=== PATIENT | female | born 1990 | race Hispanic/Latino ===

== ENCOUNTER 2018-12-19 07:47 | Day surgery (SDC) | payer MEDICAID ==
[2018-12-18 17:02] LABS: BASOPHILS % (AUTO) 0.8 % (0.0-5.0); EOSINOPHILS % (AUTO) 3.6 % (0.0-8.0); HEMATOCRIT 41.8 % (36-48); LYMPHOCYTES % (AUTO) 34.6 % (21.0-51.0); MEAN CORPUSCULAR HEMOGLOBIN 30.4 pg (27.0-33.0); MEAN CORPUSCULAR VOLUME 89.4 fL (79-99); MONOCYTES % (AUTO) 4.9 % (3.0-13.0); NEUTROPHILS % (AUTO) 56.1 % (40.0-77.0); PLATELET COUNT (AUTO) 240 K/uL (130-400); RED BLOOD CELL COUNT(AUTO) 4.68 MIL/uL (4.00-5.50); RED CELL DISTRIBUTION WIDTH 13.1 % (11.0-15.5); WHITE BLOOD COUNT (AUTO) 4.4 K/uL (4.8-10.8)
[2018-12-18 17:03] VITALS: BP 125/61
[~2018-12-19] VITALS: Ht 162.6 cm; Wt 59.4 kg
[2018-12-19] VITALS (15 sets, daily range): BP systolic 100–115; BP diastolic 53–71
[~2018-12-19 07:47] MED LIST: CALDOLOR 800MG+NS 250ML 250 ML IV SCH; IBUP-2353 PO; LACTATED RINGERS 1000ML 1,000 ML IV SCH
[2018-12-19] MEDS ORDERED: STRONG IODINE SOLUTION 30ML BOTTLE ONE (08:41)
[2018-12-19] MEDS ORDERED: BUPIVACAINE/PF 0.25% 30ML VIAL IJ ONE (08:41)
[2018-12-19] MEDS ORDERED: LIDOCAINE PF 2% 5ML ABBOJECT ONE (08:57)
[2018-12-19] MEDS ORDERED: PROPOFOL 10 MG/ML 20ML VIAL IV ONE ×2 (08:58→09:57)
[2018-12-19] MEDS ORDERED: FENTANYL CITRATE PF 50 MCG/1 ML 2ML VIAL ONE (08:58)
[2018-12-19] MEDS ORDERED: MIDAZOLAM HCL 1 MG/ML 2ML VIAL ONE (08:58)
[2018-12-19] MEDS ORDERED: ROCURONIUM 10MG/1ML SYR 10 MG/ML ML ONE (08:58)
[2018-12-19] MEDS ORDERED: NEOSTIGMINE 5MG/5ML SYR IV ONE (09:54)
[2018-12-19] MEDS ORDERED: GLYCOPYRROLATE 1 MG/5 ML SYRINGE ONE (09:54)
--- NOTE | 2018-12-19 10:20 | NUR ---
OB PAD SOAKED, CHANGED BY ADRIANA LIANG AND ADRIANA COOK. Addendum: 12/19/18 at 1112 by SP OQUENDO RN RN Amended: Links added.
[2018-12-19] MEDS ORDERED: MEPERIDINE-PF 25 MG/ML SYG ONE ×2 (10:25→10:54)
[2018-12-19] MEDS ORDERED: CITRIC ACID/SODIUM CITRATE 30 ML UDCUP ONE (10:28)
[2018-12-19] MEDS ORDERED: FAMOTIDINE/PF 20 MG/2 ML VIAL IV ONE (10:28)
--- NOTE | 2018-12-19 11:12 | NUR ---
OB PAD CHANGED BY ADRIANA LIANG AND ADRIANA TERRELL. Addendum: 12/19/18 at 1113 by SP OQUENDO RN RN Amended: Links added.
--- NOTE | 2018-12-19 12:15 | NUR ---
PT DISCHARGED HOME, TOLERATING FLUIDS, DENIES ANY SEVERE PAIN, NAUSEA OR DIZZINESS, AMBULATING WELL, VOIDED GOOD AMOUNT PRIOR TO DISCHARGE. MODERATE AMOUNT OF BLEEDING NOTED. PT REMINDED TO WATCH FOR SIGNS OF EXCESSIVE BLEEDING OR INFECTION AND TO NOTIFY DR. BARRAZA IF EXPERIENCES EITHER. PT AND SPOUSE REPORT NO FURTHER QUESTIONS AT THIS TIME. PRESCRIPTIONS GIVEN TO SPOUSE.
== END 2018-12-19 12:15 | disposition home or self-care (01) ==
LOC: DAH 07:47
DX: Z30.2 Encounter for sterilization (principal); N87.0 Mild cervical dysplasia; J45.909 Unspecified asthma, uncomplicated; Z87.891 Personal history of nicotine dependence; K21.9 Gastro-esophageal reflux disease without esophagitis
CPT/HCPCS: 36415; 57510; 58670; 84703; 85025; 86850; 86900; 86901; A4215; A4351; C1769 ×2; J1741; J2001; J2175 ×2; J2250; J2704 ×2; J2710; J3010; J3490 ×3; J7120

== ENCOUNTER 2022-05-23 07:50 | Emergency (ER) | payer MEDICAID, OTHER ==
[~2022-05-23] VITALS: Ht 162.6 cm; Wt 80.7 kg
[~2022-05-23 07:50] MED LIST changes: -CALDOLOR 800MG+NS 250ML 250 ML IV SCH; -IBUP-2353 PO; +IBUP-2784 PO; -LACTATED RINGERS 1000ML 1,000 ML IV SCH
[2022-05-23] MEDS ORDERED: ACETAMINOPHEN 500 MG TABLET PO STA (08:17)
[2022-05-23] MEDS ORDERED: OSEL75 PO (09:26)
[2022-05-23] MEDS ORDERED: DEXAMETHASONE SOD PHOSPHATE 4 MG/ML 1ML VIAL IM STA (09:30)
[2022-05-23 09:37] VITALS: BP 121/76
== END 2022-05-23 09:58 | disposition home or self-care (01) ==
LOC: EDH 07:50
DX: J10.1 Influenza due to other identified influenza virus with other respiratory manifestations (principal); Z20.822 Contact with and (suspected) exposure to COVID-19; J45.909 Unspecified asthma, uncomplicated; Z98.890 Other specified postprocedural states
CPT/HCPCS: 99283; 87635; 87880; 87804 ×2; 81025; 96372; J1100; C9803

== ENCOUNTER 2022-08-11 11:34 | Day surgery (SDC) | payer OTHER, SELFPAY ==
[2022-08-10 10:17] LABS: BASOPHILS % (AUTO) 0.5 % (0.0-5.0); EOSINOPHILS % (AUTO) 2.2 % (0.0-8.0); LYMPHOCYTES % (AUTO) 45.5 % (21.0-51.0); MEAN CORPUSCULAR HEMOGLOBIN 29.4 pg (27.0-33.0); MEAN CORPUSCULAR HGB CONC 32.5 g/dL (32.0-36.0); MEAN CORPUSCULAR VOLUME 90.5 fL (79-99); MONOCYTES % (AUTO) 5.2 % (3.0-13.0); NEUTROPHILS % (AUTO) 46.4 % (40.0-77.0); PLATELET COUNT (AUTO) 257 K/uL (130-400); RED BLOOD CELL COUNT(AUTO) 4.42 MIL/uL (4.00-5.50); RED CELL DISTRIBUTION WIDTH 12.4 % (11.0-15.5)
[~2022-08-11] VITALS: Ht 162.6 cm; Wt 78.0 kg
[2022-08-11] VITALS (14 sets, daily range): BP systolic 110–137; BP diastolic 62–83
[2022-08-11] MEDS ORDERED: PROPOFOL 10 MG/ML 20ML VIAL IV ONE (11:54)
[2022-08-11] MEDS ORDERED: FENTANYL CITRATE PF 50 MCG/1 ML 2ML VIAL ONE ×3 (11:55→15:11)
[2022-08-11] MEDS ORDERED: MIDAZOLAM HCL 1 MG/ML 2ML VIAL ONE (11:56)
[2022-08-11] MEDS ORDERED: KETOROLAC 30MG VIAL (30MG/ML) ONE (11:57)
[2022-08-11] MEDS ORDERED: LIDOCAINE PF 100MG/5ML (2%) SYRINGE 5ML ONE (11:59)
[2022-08-11] MEDS ORDERED: SUCCINYLCHOLINE CHLORIDE 20 MG/ML 10 ML VIAL ONE (11:59)
[2022-08-11] MEDS ORDERED: DEXAMETHASONE SOD PHOSPHATE 4 MG/ML 1ML VIAL ONE (11:59)
[2022-08-11] MEDS ORDERED: ONDANSETRON 4MG INJ ONE (11:59)
[2022-08-11] MEDS ORDERED: PHENYLEPHRINE HCL 10 MG/ML 1ML VIAL IV ONE (12:14)
[2022-08-11] MEDS: CEFAZOLIN SODIUM 2 GM VIAL IVPB SCH ×2 (12:39→13:11)
[2022-08-11] MEDS: LACTATED RINGERS 1000ML 1,000 ML IV SCH ×2 (12:39→13:47)
[2022-08-11] MEDS ORDERED: MEPERIDINE-PF 25 MG/ML SYG ONE (16:48)
== END 2022-08-11 18:00 | disposition home or self-care (01) ==
LOC: DAH 11:34 → EDSTATUS 13:00 → DAH 18:00
PROVIDERS: ATTEND Obstetrics & Gynecology
DX: N81.6 Rectocele (principal); Z20.822 Contact with and (suspected) exposure to COVID-19; N90.69 Other specified hypertrophy of vulva; N81.89 Other female genital prolapse; I10 Essential (primary) hypertension; J45.909 Unspecified asthma, uncomplicated; Z83.3 Family history of diabetes mellitus; Z82.49 Family history of ischemic heart disease and other diseases of the circulatory system; Z80.41 Family history of malignant neoplasm of ovary; Z83.42 Family history of familial hypercholesterolemia; Z87.891 Personal history of nicotine dependence; Z79.899 Other long term (current) drug therapy; Z98.890 Other specified postprocedural states
CPT/HCPCS: 87426; 85025; 84703; 36415; 57250; 56620; J1100; A4663; J7120 ×2; A4606; J3010 ×3; J0330; J2001; J2250; J2704; J2405; J1885; J2175; J2370; J0690; A4351; A4649; A4215; A4223; A4222; A4221; A4600

== ENCOUNTER 2023-02-05 00:08 | Emergency (ER) | payer OTHER ==
[~2023-02-05] VITALS: Ht 162.6 cm; Wt 79.4 kg
[2023-02-05 01:53] LABS: BASOPHILS % (AUTO) 0.5 % (0.0-5.0); HEMATOCRIT 41.7 % (36-48); LYMPHOCYTES % (AUTO) 38.1 % (21.0-51.0); MEAN CORPUSCULAR HEMOGLOBIN 29.2 pg (27.0-33.0); MEAN CORPUSCULAR HGB CONC 33.6 g/dL (32.0-36.0); MEAN CORPUSCULAR VOLUME 87.1 fL (79-99); MONOCYTES % (AUTO) 6.5 % (3.0-13.0); NEUTROPHILS % (AUTO) 52.7 % (40.0-77.0); PLATELET COUNT (AUTO) 242 K/uL (130-400); RED BLOOD CELL COUNT(AUTO) 4.79 MIL/uL (4.00-5.50); RED CELL DISTRIBUTION WIDTH 12.3 % (11.0-15.5)
[2023-02-05 01:54] LABS: APPEARANCE,URINE CLEAR (CLEAR); BILIRUBIN,URINE NEGATIVE (NEGATIVE); COLOR,URINE LIGHT-YELLOW (YELLOW); GLUCOSE, URINE (UA) NEGATIVE (NEGATIVE); KETONES,URINE NEGATIVE (NEGATIVE); LEUKOCYTE ESTERASE ,URINE NEGATIVE Leu/uL (NEGATIVE); NITRATE,URINE NEGATIVE (NEGATIVE); OCCULT BLOOD,URINE NEGATIVE (NEGATIVE); PH,URINE 5.5 (5.0-8.0); PROTEIN,URINE NEGATIVE (NEGATIVE); UROBILINOGEN,URINE 0.2 mg/dL (0.2-1.0)
[2023-02-05 02:06] LABS: CREATININE 0.6 mg/dL (0.5-1.5); POTASSIUM 4.9 mmol/L (3.5-5.1)
[2023-02-05 02:09] LABS: HCG,QUALITATIVE URINE NEGATIVE (NEGATIVE)
[2023-02-05 02:11] LABS: ALBUMIN 4.4 g/dL (3.5-5.0); MAGNESIUM 1.9 mg/dL (1.80-2.40); TOTAL PROTEIN, SERUM 8.1 g/dL (6.0-8.3)
[2023-02-05 03:56] VITALS: BP 146/72
[2023-02-05] MEDS ORDERED: HYDROXYZINE 25 MG TABLET PO ONE (04:30)
[2023-02-05] MEDS ORDERED: DEXAMETHASONE SOD PHOSPHATE 4 MG/ML 1ML VIAL IV ONE (04:30)
[2023-02-05] MEDS ORDERED: METOCLOPRAMIDE 10 MG/2 ML VIAL IVP ONE (04:30)
[2023-02-05] MEDS ORDERED: FAMOTIDINE 20MG VIAL IV ONE (04:30)
[2023-02-05] MEDS ORDERED: KETOROLAC 30MG VIAL (30MG/ML) IVP ONE (04:30)
[2023-02-05] MEDS ORDERED: HYDR50CA50 PO (05:34)
[2023-02-05] MEDS ORDERED: METO-296 PO (05:34)
== END 2023-02-05 05:45 | disposition home or self-care (01) ==
LOC: EDH 00:08
DX: G44.209 Tension-type headache, unspecified, not intractable (principal); F41.9 Anxiety disorder, unspecified; T50.905A Adverse effect of unspecified drugs, medicaments and biological substances, initial encounter; J45.909 Unspecified asthma, uncomplicated; Z79.52 Long term (current) use of systemic steroids; Y92.89 Other specified places as the place of occurrence of the external cause
CPT/HCPCS: 99285; 96374; 96375; 70450; 83735; 84484; 80053; 85025; 81003; 81025; 36415; 93005; J1100; J3490; J1885; J2765